=== PATIENT | female | born 1995 | race Asian ===

== ENCOUNTER 2020-08-02 20:43 | Emergency (ER) | payer OTHER ==
--- NOTE | 2020-08-02 22:00 | ED Physician Documentation ---
History of Present Illness - Stated complaint Stated Complaint: LT LEG PAIN - Chief complaint Chief Complaint: Ext Problem - History obtained from History obtained from: Patient - History of Present Illness Timing: Chronic Pain level now: 5 Improved by: rest Worsened by: weight bearing on LLE - Additonal information Additional information: c/o LLE pain, chronic/recurrent for 1-2 years. Moved to [facility] last week. she says she was being followed for this and testing included MRI but no cause was found. she says this pain has been attributed to muscle sprain (pulled muscle, per patient) although she does not recall specific injury or inciting event. she also denies recent injury. she says the pain worsened this afternoon, left posterior calf, with numbness from proximal left calf to toes. pain is worse with weight-bearing. denies back pain. she has her medical chart with her which references the symptoms and suggestion to have MRI performed but MRI results are not in this chart; patient says she wasnt given a copy of the MRI results Review of Systems Skin: denies: Rash Musculoskeletal: reports: Extremity pain, Pain with weight bearing. denies: Back pain, Joint pain, Extremity swelling, Joint swelling Neurologic: reports: Numbness. denies: Focal weakness PD PAST MEDICAL HISTORY - Past Medical History Past Medical History: No - Present Medications Home Medications: Ambulatory Orders Medication Instructions Recorded Confirmed No Known Home Medications 08/02/20 08/02/20 - Allergies Allergies/Adverse Reactions: Allergies Allergy/AdvReac Type Severity Reaction Status Date / Time No Known Drug Allergies Allergy Verified 08/02/20 21:22 - Living Situation Living Situation: reports: With spouse/s.o. Living Arrangement: reports: At home PD ED PE NORMAL - Vitals Vital signs reviewed: Yes - General General: Alert and oriented X 3, No acute distress, Well developed/nourished - Back Back: No spinal TTP - Derm Derm: Normal color, Warm and dry, No rash - Extremities Extremities: No tenderness to palpate, Normal ROM s pain, No edema, No calf tenderness / cord - Neuro Neuro: No motor deficit (LLE 5/5 dorsi/plantarflexion, knee extension), No sensory deficit (LTS intact BLE) PD ED PE EXPANDED - Extremities Extremities: Pedal Pulses Present Results - Vitals Vitals: Oxygen O2 Source Room air PD MEDICAL DECISION MAKING - ED course Complexity details: considered differential, d/w patient ED course: patient initially indicates her symptoms started earlier this afternoon, but goes on to describe her symptoms as ongoing symptoms that she has had for at least a year and for which she has had w/u including MRI. she has a copy of her medical records (recently moved here) but this does not include report of MRI results. based on H+P, emergent testing is not indicated at this time. DVT is amongst the diagnoses considered, and we discussed option of US but she declines. given the chronicity and lack of swelling on exam, DVT is unlikely and deferring testing to outpatient setting is appropriate. she says she does not want any prescription medications for pain control (I offered gabapentin but she declines). she requests referral to outpatient provider; I advised her to follow up with [facility] medical to establish with them first and that she can then obtain referrals for specialist consult(s) as deemed necessary by her PMD Departure - Departure Disposition: 01 Home, Self Care Clinical Impression: Pain of lower extremity Qualifiers: Laterality: left Qualified Code(s): M79.605 - Pain in left leg Condition: Good Instructions: ED Strain Muscle Ext Follow-Up: [facility] Christo Pérez [Provider Group] (Call Wednesday to arrange for next available appointment) Discharge Date/Time: 08/02/20 23:34
[2020-08-02 23:34] VITALS: BP 118/68
== END 2020-08-02 23:34 | disposition home or self-care (01) ==
LOC: ED 20:43
DX: M79.605 Pain in left leg (principal)
CPT/HCPCS: 99281; 99282